=== PATIENT | female | born 1970 | race Hispanic/Latino ===

== ENCOUNTER → 2020-07-26 | Outpatient (CLI) | payer OTHER | END | disposition home or self-care (01) | LOC: RAH 13:56 | PROVIDERS: ATTEND Internal Medicine Cardiovascular Disease | DX: Z13.6 Encounter for screening for cardiovascular disorders (principal) | CPT/HCPCS: 75571 ==

== ENCOUNTER 2020-12-19 06:35 | Day surgery (SDC) | payer OTHER ==
[~2020-12-19] VITALS: Ht 170.2 cm; Wt 77.1 kg
[~2020-12-19 06:35] MED LIST: ASCO100031 PO; ATEN50TA PO; ATOR10 PO; MAGN250T10 PO; MONT10TA21 PO; SODIUM CHLORIDE 0.9% 1000ML 1,000 ML IV ONE
[2020-12-19 08:01] VITALS: BP 128/71
[2020-12-19] MEDS ORDERED: PROPOFOL 10 MG/ML 20ML VIAL IV ONE (08:53)
[2020-12-19 09:25] VITALS: BP 105/55
[2020-12-19 09:30] VITALS: BP 105/56
[2020-12-19 09:35] VITALS: BP 115/63
== END 2020-12-19 09:48 | disposition home or self-care (01) ==
LOC: DAH 06:35 → ENDO 06:35
PROVIDERS: ATTEND Internal Medicine Gastroenterology
DX: Z12.11 Encounter for screening for malignant neoplasm of colon (principal); R12 Heartburn; Z20.822 Contact with and (suspected) exposure to COVID-19; R14.2 Eructation; K63.5 Polyp of colon; K29.70 Gastritis, unspecified, without bleeding; I10 Essential (primary) hypertension; E78.5 Hyperlipidemia, unspecified; Z79.899 Other long term (current) drug therapy; Z90.710 Acquired absence of both cervix and uterus; Z90.49 Acquired absence of other specified parts of digestive tract; Z72.89 Other problems related to lifestyle; Z88.8 Allergy status to other drugs, medicaments and biological substances
CPT/HCPCS: 43239; 45385; 87635; A4215 ×2; A4221; A4222; A4223; A4606; A4620; A4657; A4663; C9803; J2704; J7030